=== PATIENT | male | born 1945 | race Caucasian/White ===

== ENCOUNTER 2023-04-19 16:30 | Emergency (ER) | payer MEDICARE, SELFPAY ==
[2023-04-19] VITALS (14 sets, daily range): BP systolic 102–134; BP diastolic 42–97; PULSE 60–69; RESP 14–30; TEMP 36.4; O2SAT 91–99; BMI 30.9
--- NOTE | 2023-04-19 | CT_ITS ---
The [address] [address] Patient Name: ALY PABLO MRN: [id number] date: 1945 Sex: M Assigned Patient Location: ER Current Patient Location: ED.MAIN Accession/Order Number: [id number] Exam Date: 04/19/2023 17:52 Report Date: 04/19/2023 19:29 At the request of: LATIA APARICIO Procedure: CT chest wo con CT chest wo con, 04/19/2023 5:52 PM EDT INDICATION: pain and SOB COMPARISON: None. TECHNIQUE: Thin-section axial CT images of the chest were acquired without contrast. Supplemental 2D reformatted images were generated and reviewed as needed. Dose reduction techniques were achieved by using automated exposure control and/or adjustment of mA and/or kV according to patient size and/or use of iterative reconstruction technique. FINDINGS: No focal consolidation or pleural effusion. Mild bibasilar subpleural fibrotic changes. No pneumothorax. Shotty mediastinal nodes, likely reactive. Heart size within normal limits. Pacemaker leads are noted. No pericardial effusion. Normal caliber aorta. Opaque material in the dependent gallbladder consistent with multiple tiny stones. Multilevel thoracic spondylosis IMPRESSION: Cholelithiasis. No acute intrathoracic abnormality is identified. Electronically authenticated by: Lori WELCH Date: 04/19/2023 19:29
--- NOTE | 2023-04-19 | CT_ITS ---
The [address] [address] Patient Name: ALY PABLO MRN: [id number] date: 1945 Sex: M Assigned Patient Location: ER Current Patient Location: ER Accession/Order Number: [id number] Exam Date: 04/19/2023 17:52 Report Date: 04/19/2023 19:43 At the request of: LATIA APARICIO Procedure: CT abdomen pelvis wo con EXAM: CT abdomen pelvis wo con HISTORY: pain and SOB COMPARISON: None. TECHNIQUE: Axial CT imaging was performed through the abdomen and pelvis with intravenous contrast. Multiplanar reformats were performed. Dose reduction techniques were achieved by using automated exposure control and/or adjustment of mA and/or kV according to patient size and/or use of iterative reconstruction technique. FINDINGS: Lung bases: Lung bases are clear. No pleural effusion. GI upper: Unremarkable. Liver: Normal size and contour. Gallbladder: Opaque material is seen in the dependent gallbladder consistent with multiple tiny calculi. Biliary system: No intra or extrahepatic biliary ductal dilatation. Pancreas: Unremarkable. Spleen: Normal size. Adrenal glands: Normal adrenal glands. Kidneys/ureters: The right kidney is absent. The left kidney is normal in contour and size. A circumscribed 9 mm exophytic lesion is seen at the lateral inferior margin of the left kidney with density numbers in the range of 60 Hounsfield units, likely hyperdense cyst. No nephrolithiasis. The left ureter is normal in caliber and course to the bladder. Vessels: No aneurysmal dilatation of the aorta. Atherosclerotic disease is noted. Retroperitoneum: No lymphadenopathy. Small bowel: No wall thickening or dilatation. Colon: Descending and sigmoid colon diverticuli are noted. There is wall thickening and adjacent mild fat stranding at about juncture of the descending and sigmoid colon. No extraluminal air. Appendix: Appendix is identified with normal appearance. Peritoneal cavity: No free fluid or pneumoperitoneum. Lower : The prostate is enlarged, measuring approximately 4.5 cm AP by 6.3 cm transverse by 6.0 cm craniocaudal. Punctate calcifications are seen within. Bones:Facet arthropathy at lower lumbar levels. No acute bony abnormality. Soft tissues: No acute finding. Additional findings: None. IMPRESSION: Left colonic diverticulosis with evidence for diverticulitis at about juncture of the descending and sigmoid colon. Cholelithiasis. Prior right nephrectomy. Prostatomegaly. Electronically authenticated by: Lori WELCH Date: 04/19/2023 19:43
--- NOTE | 2023-04-19 16:58 | ED.GENADUL1 ---
HPI - General Adult General Chief complaint: Shortness of Breath/Dyspnea Stated complaint: SOB/EPIGASTRIC PAIN Time Seen by Provider: 04/19/23 16:53 Source: patient Mode of arrival: Wheelchair Limitations: no limitations History of Present Illness HPI narrative: 77 year old old male presents to the emergency department for abdominal pain. He points across his upper abdomen and it's been there since early this morning. No trauma or fever. He hasn't eaten today. He is not complaining of chest pain but he feels a little bit short of breath. No injury and no back pain. The pain does not go into his legs. No dysuria or hematuria. The pain is moderate to severe and continuous. Related Data Allergies Allergy/AdvReac Type Severity Reaction Status Date / Time No Known Drug Allergies Allergy Verified 04/19/23 16:44 Review of Systems ROS Narrative A ten point review of systems is negative except as noted above. Exam Narrative Exam Narrative: Nurses note and vital signs reviewed and patient is not hypoxic. General: The patient appears uncomfortable. Skin: Warm, dry, no pallor noted. There is no rash noted. Head: Normocephalic, atraumatic Eye: Normal conjunctiva, no drainage Ears, Nose, Mouth, and Throat: oral mucosa is moist. Nares patent. Cardiovascular: Regular Rate and Rhythm Respiratory: Patient is in no distress, no accessory muscle use, lungs are clear to auscultation, no wheezing, rales or rhonchi Back: non-tender GI: tender across his upper abdomen, bowel sounds present. No distention. Musculoskeletal: The patient has no evidence of calf tenderness, no pitting edema, symmetrical pulses noted bilaterally Neurological: A&O, normal speech Psychiatric: Cooperative Constitutional Vital Signs - 24 hr 04/19/23 16:41 Temperature 97.6 F Pulse Rate [Monitor] 60 Respiratory Rate 28 H Blood Pressure [Right Arm] 102/97 H Pulse Oximetry 99 Course Vital Signs Vital signs: Vital Signs Temperature 97.6 F 04/19/23 16:41 Pulse Rate 60 04/19/23 16:41 Respiratory Rate 28 H 04/19/23 16:41 Blood Pressure 102/97 H 04/19/23 16:41 Pulse Oximetry 99 04/19/23 16:41 Temperature 97.6 F 04/19/23 16:41 Pulse Rate 60 06/23/23 16:41 Respiratory Rate 28 H 04/19/23 16:41 Blood Pressure 102/97 H 04/19/23 16:41 Pulse Oximetry 99 04/19/23 16:41 Medical Decision Making MDM Narrative Medical decision making narrative: blood work is nonspecific. CAT scan the abdomen is pending and the patient is signed out to Dr. Teague. Differential Diagnosis Differential Diagnosis: abdominal aortic aneurysm, pancreatitis, colitis, diverticulitis, small bow Lab Data Lab results reviewed: Yes I reviewed the patient's lab results Discharge Plan Discharge Chief Complaint: Shortness of Breath/Dyspnea Clinical Impression: Abdominal pain Referrals: JERRICA QUINTERO [Primary Care Provider] - 1 week
[2023-04-19 17:15] LABS: Basophils Percent Auto 0.4 % (0.2-2.0); Eosinophils Absolute Auto 0.1 10^3/uL (0.0-0.7); Eosinophils Percent Auto 1.6 % (0.9-7.0); Hematocrit 37.4 % (42.0-54.0); Hemoglobin 12.9 g/dL (14.0-18.0); Immature Granulocytes Abs Auto 0.03 10^3/uL (0.00-0.03); Immature Granulocytes Pct Auto 0.4 % (0.0-0.5); Lymphocytes Absolute Auto 0.8 10^3/uL (1.2-3.8); Lymphocytes Percent Auto 9.4 % (20.5-60.0); Mean Corpuscular HGB Conc 34.5 g/dL (29.9-35.2); Mean Corpuscular Hemoglobin 30.8 pg (25.9-34.0); Mean Corpuscular Volume 89.3 fL (80.0-94.0); Mean Platelet Volume 9.7 fL (9.5-13.5); Monocytes Absolute Auto 0.5 10^3/uL (0.3-0.8); Monocytes Percent Auto 5.8 % (1.7-12.0); Neutrophils Percent Auto 82.4 % (43.0-75.0); Platelet Count 160 10^3/uL (150-450); Red Blood Count 4.19 10^6/uL (4.70-6.10); Red Cell Distribution Width 14.6 % (11.0-15.0); White Blood Count 8.5 10^3/uL (4.0-11.0)
[2023-04-19 17:28] LABS: Amylase 91 U/L (25-115)
[2023-04-19 17:34] LABS: Alanine Aminotransferase 54 U/L (16-63); Albumin Globulin Ratio 1.3; Albumin Level 3.8 g/dL (3.4-5.0); Alkaline Phosphatase 143 U/L (46-116); Anion Gap 14.9; Aspartate Amino Transferase 63 U/L (15-37); BUN Creatinine Ratio 16.5; Bilirubin Total 1.5 mg/dL (0.2-1.0); Calcium 9.2 mg/dL (8.5-10.1); Carbon Dioxide 19.7 mmol/L (21.0-32.0); Chloride 106 mmol/L (98-107); Estimated GFR (African America 29 (>=60); Estimated GFR (Non-African Ame 24 (>=60); Glucose 153 mg/dL (74-106); Potassium 4.6 mmol/L (3.5-5.1); Sodium 136 mmol/L (136-145); Total Protein 6.8 g/dL (6.4-8.2)
[2023-04-19 17:35] LABS: Troponin I High Sensitivity 13.1 pg/mL (4.0-76.1)
--- NOTE | 2023-04-19 18:50 | ECG_ITS ---
The 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
[2023-04-19 19:31] LABS: Lactate/Lactic Acid 0.8 mmol/L (0.4-2.0)
--- NOTE | 2023-04-19 20:04 | ED_ITS ---
HPI - General Adult General Chief complaint: Shortness of Breath/Dyspnea Stated complaint: SOB/EPIGASTRIC PAIN Time Seen by Provider: 04/19/23 16:53 Source: patient Mode of arrival: Wheelchair Limitations: no limitations Related Data Allergies Allergy/AdvReac Type Severity Reaction Status Date / Time No Known Drug Allergies Allergy Verified 04/19/23 16:44 Exam Constitutional Vital Signs - 24 hr 04/19/23 16:41 04/19/23 16:52 04/19/23 16:54 Temperature 97.6 F Pulse Rate 62 60 Pulse Rate [Monitor] 60 Respiratory Rate 28 H 20 21 Blood Pressure 129/70 H Blood Pressure [Right Arm] 102/97 H Pulse Oximetry 99 Oxygen Delivery Method 04/19/23 16:54 04/19/23 16:54 04/19/23 17:00 Temperature Pulse Rate 61 60 60 Pulse Rate [Monitor] Respiratory Rate 26 H 30 H 18 Blood Pressure 129/70 H 119/42 L Blood Pressure [Right Arm] Pulse Oximetry Oxygen Delivery Method 04/19/23 17:15 04/19/23 17:30 04/19/23 17:45 Temperature Pulse Rate 64 60 69 Pulse Rate [Monitor] Respiratory Rate 19 19 22 Blood Pressure 127/65 H 130/67 H 120/68 H Blood Pressure [Right Arm] Pulse Oximetry Oxygen Delivery Method 04/19/23 18:04 04/19/23 18:04 04/19/23 18:15 Temperature Pulse Rate 61 64 61 Pulse Rate [Monitor] Respiratory Rate 19 22 18 Blood Pressure 134/66 H 115/61 Blood Pressure [Right Arm] Pulse Oximetry 98 91 L 97 Oxygen Delivery Method 04/19/23 18:30 04/19/23 19:03 04/19/23 19:09 Temperature Pulse Rate 64 Pulse Rate [Monitor] 66 Respiratory Rate 21 14 Blood Pressure 120/67 H Blood Pressure [Right Arm] 121/62 H Pulse Oximetry 98 97 97 Oxygen Delivery Method Room Air Room Air 04/19/23 21:37 Temperature 97.6 F Pulse Rate Pulse Rate [Monitor] 69 Respiratory Rate 16 Blood Pressure Blood Pressure [Right Arm] 124/72 H Pulse Oximetry 97 Oxygen Delivery Method Room Air Course Vital Signs Vital signs: Vital Signs Temperature 97.6 F 04/19/23 16:41 Pulse Rate 60 04/19/23 16:41 Respiratory Rate 28 H 06/23/23 16:41 Blood Pressure 102/97 H 04/19/23 16:41 Pulse Oximetry 99 04/19/23 16:41 Temperature 97.6 F 04/19/23 21:37 Pulse Rate 69 04/19/23 21:37 Respiratory Rate 16 04/19/23 21:37 Blood Pressure 124/72 H 04/19/23 21:37 Pulse Oximetry 97 04/19/23 21:37 Oxygen Delivery Method Room Air 04/19/23 21:37 Medical Decision Making Lab Data Labs: Lab Results 04/19/23 04/19/23 Range/Units 16:58 19:10 WBC 8.5 (4.0-11.0) 10^3/uL RBC 4.19 L (4.70-6.10) 10^6/uL Hgb 12.9 L (14.0-18.0) g/dL Hct 37.4 L (42.0-54.0) % MCV 89.3 (80.0-94.0) fL MCH 30.8 (25.9-34.0) pg MCHC 34.5 (29.9-35.2) g/dL RDW 14.6 (11.0-15.0) % Plt Count 160 (150-450) 10^3/uL MPV 9.7 (9.5-13.5) fL Neut % (Auto) 82.4 H (43.0-75.0) % Lymph % (Auto) 9.4 L (20.5-60.0) % [place] % (Auto) 5.8 (1.7-12.0) % Eos % (Auto) 1.6 (0.9-7.0) % Baso % (Auto) 0.4 (0.2-2.0) % Neut # (Auto) 7.0 H (1.4-6.5) 10^3/uL Lymph # (Auto) 0.8 L (1.2-3.8) 10^3/uL [place] # (Auto) 0.5 (0.3-0.8) 10^3/uL Eos # (Auto) 0.1 (0.0-0.7) 10^3/uL Baso # (Auto) 0.0 (0.0-0.1) 10^3/uL Abs Immat Gran (auto) 0.03 (0.00-0.03) 10^3/uL Imm/Tot Granulo (auto) 0.4 (0.0-0.5) % Sodium 136 (136-145) mmol/L Potassium 4.6 (3.5-5.1) mmol/L Chloride 106 (98-107) mmol/L Carbon Dioxide 19.7 L (21.0-32.0) mmol/L Anion Gap 14.9 BUN 43.0 H (7.0-18.0) mg/dL Creatinine 2.61 H (0.70-1.30) mg/dL Est GFR ( Amer) 29 L (>=60) Est GFR (Non-Af Amer) 24 L (>=60) BUN/Creatinine Ratio 16.5 Glucose 153 H (74-106) mg/dL Lactate 0.8 (0.4-2.0) mmol/L Calcium 9.2 (8.5-10.1) mg/dL Total Bilirubin 1.5 H (0.2-1.0) mg/dL AST 63 H (15-37) U/L ALT 54 (16-63) U/L Alkaline Phosphatase 143 H (46-116) U/L Troponin I High Sens 13.1 (4.0-76.1) pg/mL Total Protein 6.8 (6.4-8.2) g/dL Albumin 3.8 (3.4-5.0) g/dL Globulin 3.0 g/dL Albumin/Globulin Ratio 1.3 Amylase 91 (25-115) U/L Lipase 165.0 (73.0-393.0) U/L Discharge Plan Discharge Chief Complaint: Shortness of Breath/Dyspnea Clinical Impression: Abdominal pain, Acute diverticulitis, Chronic renal disease, Gallstones Patient Disposition: Home, Self-Care Time of Disposition Decision: 20:31 Condition: Good Mode of Transportation: Private Vehicle Instructions: Diverticulitis (ED), Gallstones (ED), Chronic Kidney Disease (ED) Additional Instructions: Eat a bland diet. Use pain medications as needed. Use Colace to prevent constipation from the pain medications. Use the antibiotics as prescribed. Return to the emergency department for worsening pain, fever, inability to tolerate her medications or any concerns. Follow up closely with your health care providers at the [place]. Stand Alone Forms: Portal Instructions Referrals: JERRICA QUINTERO [Primary Care Provider] - 1 week Discharge Date/Time: 04/19/23 22:20
[2023-04-19] MEDS: AMPICILLIN SODIUM/SULBACTAM NA 1.5 GM in 0.9 % SODIUM CHLORIDE 50 ML IV (20:22)
[2023-04-19] MEDS: METRONIDAZOLE/SODIUM CHLORIDE 500 MG/100 ML PREMIX 100 MG IV (21:09)
== END 2023-04-19 22:20 | disposition home or self-care (01) ==
PROVIDERS: Emergency Medicine; Emergency Provider Emergency Medicine; PCP Nurse Practitioner Family
DX: R10.9 Unspecified abdominal pain (principal); N18.9 Chronic kidney disease, unspecified; K57.32 Diverticulitis of large intestine without perforation or abscess without bleeding; K80.20 Calculus of gallbladder without cholecystitis without obstruction
CPT/HCPCS: 36415; 71250; 74176; 80053; 81003; 82150; 83605; 83690; 84484; 85025; 93005; 96365; 96375; 99285

== ENCOUNTER 2023-06-25 13:14 | Outpatient (OUT) | payer MEDICARE, SELFPAY ==
[2023-06-25 14:03] LABS: Basophils Absolute Auto 0.1 10^3/uL (0.0-0.1); Basophils Percent Auto 1.3 % (0.2-2.0); Eosinophils Absolute Auto 0.2 10^3/uL (0.0-0.7); Eosinophils Percent Auto 4.2 % (0.9-7.0); Hemoglobin 13.3 g/dL (14.0-18.0); Immature Granulocytes Abs Auto 0.01 10^3/uL (0.00-0.03); Immature Granulocytes Pct Auto 0.2 % (0.0-0.5); Lymphocytes Absolute Auto 0.8 10^3/uL (1.2-3.8); Lymphocytes Percent Auto 15.1 % (20.5-60.0); Mean Corpuscular HGB Conc 33.3 g/dL (29.9-35.2); Mean Corpuscular Hemoglobin 31.1 pg (25.9-34.0); Mean Corpuscular Volume 93.7 fL (80.0-94.0); Mean Platelet Volume 9.6 fL (9.5-13.5); Monocytes Absolute Auto 0.5 10^3/uL (0.3-0.8); Monocytes Percent Auto 8.7 % (1.7-12.0); Neutrophils Absolute Auto 3.7 10^3/uL (1.4-6.5); Neutrophils Percent Auto 70.5 % (43.0-75.0); Platelet Count 146 10^3/uL (150-450); Red Blood Count 4.27 10^6/uL (4.70-6.10); Red Cell Distribution Width 13.8 % (11.0-15.0); White Blood Count 5.3 10^3/uL (4.0-11.0)
[2023-06-25 14:22] LABS: Estimated Average Glucose 117 mg/dL; Glycohemoglobin A1C 5.7 % (4.5-6.2)
[2023-06-25 14:42] LABS: Alanine Aminotransferase 33 U/L (16-63); Albumin Globulin Ratio 1.4; Albumin Level 4.1 g/dL (3.4-5.0); Alkaline Phosphatase 123 U/L (46-116); Anion Gap 18.9; Aspartate Amino Transferase 32 U/L (15-37); BUN Creatinine Ratio 12.9; Bilirubin Total 0.7 mg/dL (0.2-1.0); Calcium 9.4 mg/dL (8.5-10.1); Carbon Dioxide 21.9 mmol/L (21.0-32.0); Chloride 104 mmol/L (98-107); Chol HDL Ratio 2.4; Cholesterol 104 mg/dL (<=200); Estimated GFR (African America 37 (>=60); Estimated GFR (Non-African Ame 31 (>=60); Free T3 2.64 pg/mL (2.18-3.98); Glucose 113 mg/dL (74-106); HDL Cholesterol 44 mg/dL (40-60); LDL Cholesterol Calculated 40.2 mg/dL; Potassium 4.8 mmol/L (3.5-5.1); Sodium 140 mmol/L (136-145); Thyroid Stimulating Hormone 1.819 uIU/mL (0.358-3.740); Total Protein 7.1 g/dL (6.4-8.2); Triglycerides 99 mg/dL (<=150); VLDL CHOLESTEROL 19.8 mg/dL
[2023-06-26 12:12] LABS: Insulin 12.3 uIU/mL (2.6-24.9)
== END 2023-06-25 13:15 | disposition home or self-care (01) ==
LOC: LAB 13:16
PROVIDERS: PCP Nurse Practitioner Family; Visit Provider Nurse Practitioner Family
DX: R53.82 Chronic fatigue, unspecified (principal); E78.00 Pure hypercholesterolemia, unspecified; E55.9 Vitamin D deficiency, unspecified; R73.9 Hyperglycemia, unspecified
CPT/HCPCS: 36415; 80053; 80061; 82306; 83036; 83525; 84436; 84443; 84481; 84550; 85025

== ENCOUNTER 2024-01-27 12:38 | Outpatient (OUT) | payer MEDICARE, SELFPAY ==
--- NOTE | 2024-01-27 13:00 | ECG_ITS ---
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
== END 2024-01-27 12:39 | disposition home or self-care (01) ==
LOC: CARD 12:39
PROVIDERS: PCP Nurse Practitioner Family; Visit Provider Nurse Practitioner Family
DX: I48.91 Unspecified atrial fibrillation (principal)
CPT/HCPCS: 93005

== ENCOUNTER 2024-06-13 22:27 | Inpatient (IN) | payer OTHER, SELFPAY ==
[2024-06-13 22:52] VITALS: BP 138/72; PULSE 67; TEMP 36.6; O2SAT 97; BMI 28.0
--- NOTE | 2024-06-13 23:11 | CT_ITS ---
The [address] [address] Patient Name: ALY PABLO MRN: [id number] date: 1945 Sex: M Assigned Patient Location: ER Current Patient Location: ER Accession/Order Number: [id number] Exam Date: 06/13/2024 23:49 Report Date: 06/14/2024 04:33 At the request of: LATIA APARICIO Procedure: CT abdomen pelvis wo con EXAM: CT abdomen pelvis wo con HISTORY: Right sided pain, history of right nephrectomy COMPARISON: CT abdomen and pelvis examination dated 04/19/2023. TECHNIQUE: Noncontrast axial CT images through the abdomen and pelvis were obtained with coronal and sagittal reformats. Dose reduction techniques were achieved by using automated exposure control and/or adjustment of mA and/or kV according to patient size and/or use of iterative reconstruction technique. FINDINGS: There is bibasilar atelectasis and/or scarring. Cardiac pacemaker leads are partially imaged. There is mild cardiomegaly. There is coronary artery disease. There is a small hiatal hernia. Abdomen: Please note that the sensitivity for detection of focal lesions or vascular disease is markedly reduced without intravenous contrast. The liver and spleen are unremarkable. There is no intra or extrahepatic biliary duct dilatation. There is cholelithiasis with mild pericholecystic inflammation. The patient is status post a right nephrectomy. There are a few left renal cysts. There is a hemorrhagic or proteinaceous left renal cyst measuring up to 1.0 cm (series 3, image 65). There are a few additional small suspected hemorrhagic or proteinaceous left renal cysts. The pancreas, adrenal glands, and the appendix are unremarkable. There is no mesenteric or retroperitoneal lymphadenopathy. There is colonic diverticulosis with mild inflammatory changes about the proximal sigmoid colon. There are a few small fat-containing peribuccal hernias. Pelvis: The bladder demonstrates wall thickening. The rectum is unremarkable. There is no iliac or inguinal lymphadenopathy. There is marked prostatomegaly. There is moderate to advanced atherosclerotic disease. Bone windows show no aggressive osseous lesions. 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 CT/CT abdomen pelvis wo con IMPRESSION: 1. Cholelithiasis with mild pericholecystic inflammation. Consider further evaluation with a right upper quadrant examination as these findings could represent acute cholecystitis. 2. Mild cardiomegaly with coronary artery disease. 3. Status post right nephrectomy. 4. Left renal cysts including a few hemorrhagic or proteinaceous cysts. 5. Normal appendix. 6. Colonic diverticulosis with mild inflammatory changes about the proximal sigmoid colon, concerning for diverticulitis or a focal colitis. 7. Prostamegaly. 8. Urinary bladder wall thickening which could be secondary to chronic outlet obstruction from the prostatomegaly; however, please correlate with urinalysis for infection. 9. 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 Electronically authenticated by: Kane DU Date: 06/14/2024 04:33
--- NOTE | 2024-06-13 23:11 | ECG_ITS ---
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
--- NOTE | 2024-06-13 23:11 | XR_ITS ---
The [address] [address] Patient Name: ALY PABLO MRN: [id number] date: 1945 Sex: M Assigned Patient Location: ER Current Patient Location: ER Accession/Order Number: [id number] Exam Date: 06/13/2024 23:42 Report Date: 06/14/2024 04:03 At the request of: LATIA APARICIO Procedure: XR chest 1V EXAM: XR chest 1V HISTORY: Abdominal pain COMPARISON: None. TECHNIQUE: One view of the chest was obtained. FINDINGS: A left chest cardiac pacemaker device is in place. The cardiac silhouette is mildly enlarged. There is no significant pneumothorax or left pleural effusion. There are bibasilar opacities. There is a possible small right pleural effusion. No acute osseous abnormality is seen. XR/XR chest 1V IMPRESSION: 1. Mildly enlarged cardiac silhouette with a possible small right pleural effusion and bibasilar opacities that could represent atelectasis, aspiration changes, and/or pneumonia. Electronically authenticated by: Kane DU Date: 06/14/2024 04:03
--- NOTE | 2024-06-13 23:13 | ED.ABDPAIN1 ---
HPI - Abdominal Pain General Chief Complaint: Abdominal Pain Stated Complaint: ABDOMINAL PAIN, FLANK PAIN Time Seen by Provider: 06/13/24 23:08 Source: patient Mode of arrival: walk-in Limitations: no limitations History of Present Illness HPI narrative: 78-year-old male presents to the emergency department for right-sided abdominal pain. He has had it since 10:00 this morning, 13 hours ago. No injury fever vomiting constipation or diarrhea. He states he has never had pain like this before. He has a history of right nephrectomy. Related Data Allergies Allergy/AdvReac Type Severity Reaction Status Date / Time No Known Drug Allergies Allergy Verified 06/13/24 22:56 Review of Systems ROS Narrative A ten point review of systems is negative except as noted above. Exam Narrative Exam Narrative: Nurses note and vital signs reviewed and patient is not hypoxic. General: The patient appears uncomfortable and is frequently moving around on the bed. Skin: Warm, dry, no pallor noted. There is no rash noted. Head: Normocephalic, atraumatic Eye: Normal conjunctiva, no drainage Ears, Nose, Mouth, and Throat: oral mucosa is moist. Nares patent. Cardiovascular: Regular Rate and Rhythm Respiratory: Patient is in no distress, no accessory muscle use, lungs are clear to auscultation, no wheezing, rales or rhonchi Back: non-tender, no CVA tenderness bilaterally to percussion. GI: Nondistended. No apparent tenderness on palpation. No masses noted Musculoskeletal: The patient has no evidence of calf tenderness, no pitting edema, symmetrical pulses noted bilaterally Neurological: A&O, normal speech Psychiatric: Cooperative Constitutional Vital Signs, click to edit/add: Last Vital Signs Temp 98 F 06/13/24 22:52 Pulse 92 H 06/14/24 04:53 Resp 16 06/14/24 04:53 BP 104/66 06/14/24 04:53 Pulse Ox 91 L 06/14/24 04:53 O2 Del Method Room Air 06/14/24 04:53 Course Vital Signs Vital signs: Vital Signs Temperature 98 F 06/13/24 22:52 Pulse Rate 67 06/13/24 22:52 Respiratory Rate 20 06/13/24 22:52 Blood Pressure 138/72 06/13/24 22:52 Pulse Oximetry 97 06/13/24 22:52 Oxygen Delivery Method Room Air 06/13/24 22:52 Temperature 98 F 06/13/24 22:52 Pulse Rate 92 H 06/14/24 04:53 Respiratory Rate 16 06/14/24 04:53 Blood Pressure 104/66 06/14/24 04:53 Pulse Oximetry 91 L 06/14/24 04:53 Oxygen Delivery Method Room Air 06/14/24 04:53 MDM - Abdominal Pain MDM Narrative Medical decision making narrative: CT scan is consistent with acute cholecystitis. LFTs are mildly elevated but his white blood cell count is normal. He was given IV Zosyn and I spoke to Dr. Beach and at his request I have ordered a right upper quadrant ultrasound and the patient will be admitted to the hospitalist. Treatment diagnosis and disposition were discussed with the patient. Differential Diagnosis Differential diagnosis: Likely abdominal pain, acute appendicitis, calculus of kidney, constipation, diverticulitis, gastroenteritis, pancreatitis and small bowel obstruction Lab Data Attestation: I reviewed the patient's lab results. Labs: Lab Results 06/13/24 06/14/24 Range/Units 23:00 04:40 WBC 9.2 (4.0-11.0) 10^3/uL RBC 4.00 L (4.70-6.10) 10^6/uL Hgb 12.4 L (14.0-18.0) g/dL Hct 37.1 L (42.0-54.0) % MCV 92.8 (80.0-94.0) fL MCH 31.0 (25.9-34.0) pg MCHC 33.4 (29.9-35.2) g/dL RDW 13.4 (11.0-15.0) % Plt Count 127 L (150-450) 10^3/uL MPV 10.2 (9.5-13.5) fL Neut % (Auto) 87.5 H (43.0-75.0) % Lymph % (Auto) 7.0 L (20.5-60.0) % [place] % (Auto) 4.8 (1.7-12.0) % Eos % (Auto) 0.2 L (0.9-7.0) % Baso % (Auto) 0.3 (0.2-2.0) % Neut # (Auto) 8.1 H (1.4-6.5) 10^3/uL Lymph # (Auto) 0.7 L (1.2-3.8) 10^3/uL [place] # (Auto) 0.4 (0.3-0.8) 10^3/uL Eos # (Auto) 0.0 (0.0-0.7) 10^3/uL Baso # (Auto) 0.0 (0.0-0.1) 10^3/uL Abs Immat Gran (auto) 0.02 (0.00-0.03) 10^3/uL Imm/Tot Granulo (auto) 0.2 (0.0-0.5) % Sodium 133 L (136-145) mmol/L Potassium 5.6 H (3.5-5.1) mmol/L Chloride 104 (98-107) mmol/L Carbon Dioxide 19.5 L (21.0-32.0) mmol/L Anion Gap 15.1 BUN 52.0 H (7.0-18.0) mg/dL Creatinine 2.40 H (0.70-1.30) mg/dL Est GFR ( Amer) 32 L (>=60) Est GFR (Non-Af Amer) 26 L (>=60) BUN/Creatinine Ratio 21.7 Glucose 189 H (74-106) mg/dL Calcium 9.1 (8.5-10.1) mg/dL Total Bilirubin 1.3 H (0.2-1.0) mg/dL Direct Bilirubin 0.8 H* (0.0-0.2) mg/dL AST 586 H* (15-37) U/L ALT 399 H (16-63) U/L Alkaline Phosphatase 196 H (46-116) U/L Total Protein 6.2 L (6.4-8.2) g/dL Albumin 3.7 (3.4-5.0) g/dL Globulin 2.5 g/dL Albumin/Globulin Ratio 1.5 Amylase 79 (25-115) U/L Lipase 69.0 (16.0-77.0) U/L Urine Color Yellow (YELLOW) Urine Clarity Clear (CLEAR) Urine pH 5.5 (5.0-9.0) Ur Specific [place] 1.025 (1.005-1.025) Urine Protein Trace (NEG/TRACE) mg/dL Urine Glucose (UA) Negative (NEGATIVE) mg/dL Urine Ketones Negative (NEGATIVE) mg/dL Urine Occult Blood Negative (NEGATIVE) Urine Nitrite Negative (NEGATIVE) Urine Bilirubin Negative (NEGATIVE) Urine Urobilinogen 0.2 (0.2-1.0) EU/dL Ur Leukocyte Esterase Small A (NEGATIVE) Imaging Data CT scan - abdomen: Radiologist's impression: ITS Impressions Abdomen/Pelvis CT 06/13/24 23:11 IMPRESSION: 1. Cholelithiasis with mild pericholecystic inflammation. Consider further evaluation with a right upper quadrant examination as these findings could represent acute cholecystitis. 2. Mild cardiomegaly with coronary artery disease. 3. Status post right nephrectomy. 4. Left renal cysts including a few hemorrhagic or proteinaceous cysts. 5. Normal appendix. 6. Colonic diverticulosis with mild inflammatory changes about the proximal sigmoid colon, concerning for diverticulitis or a focal colitis. 7. Prostamegaly. 8. Urinary bladder wall thickening which could be secondary to chronic outlet obstruction from the prostatomegaly; however, please correlate with urinalysis for infection. 9. 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 Electronically authenticated by: Kane DU Date: 06/14/2024 04:33 Chest X-Ray 06/13/24 23:11 IMPRESSION: 1. Mildly enlarged cardiac silhouette with a possible small right pleural effusion and bibasilar opacities that could represent atelectasis, aspiration changes, and/or pneumonia. Electronically authenticated by: Kane DU Date: 06/14/2024 04:03 Discharge Plan Discharge Chief Complaint: Abdominal Pain Clinical Impression: Acute cholecystitis Patient Disposition: Admitted As Inpatient Time of Disposition Decision: 05:00 Condition: Fair
[2024-06-13 23:19] LABS: Basophils Percent Auto 0.3 % (0.2-2.0); Eosinophils Percent Auto 0.2 % (0.9-7.0); Hematocrit 37.1 % (42.0-54.0); Hemoglobin 12.4 g/dL (14.0-18.0); Immature Granulocytes Abs Auto 0.02 10^3/uL (0.00-0.03); Immature Granulocytes Pct Auto 0.2 % (0.0-0.5); Lymphocytes Absolute Auto 0.7 10^3/uL (1.2-3.8); Mean Corpuscular HGB Conc 33.4 g/dL (29.9-35.2); Mean Corpuscular Volume 92.8 fL (80.0-94.0); Mean Platelet Volume 10.2 fL (9.5-13.5); Monocytes Absolute Auto 0.4 10^3/uL (0.3-0.8); Monocytes Percent Auto 4.8 % (1.7-12.0); Neutrophils Absolute Auto 8.1 10^3/uL (1.4-6.5); Neutrophils Percent Auto 87.5 % (43.0-75.0); Platelet Count 127 10^3/uL (150-450); Red Cell Distribution Width 13.4 % (11.0-15.0); White Blood Count 9.2 10^3/uL (4.0-11.0)
[2024-06-13] MEDS: MORPHINE SULFATE 4 MG/ML VIAL IV (23:19)
[2024-06-13] MEDS: ONDANSETRON PF 4 MG/2 ML VIAL IV (23:20)
[2024-06-13 23:38] LABS: Alanine Aminotransferase 399 U/L (16-63); Albumin Globulin Ratio 1.5; Albumin Level 3.7 g/dL (3.4-5.0); Alkaline Phosphatase 196 U/L (46-116); Amylase 79 U/L (25-115); Anion Gap 15.1; BUN Creatinine Ratio 21.7; Bilirubin Total 1.3 mg/dL (0.2-1.0); Calcium 9.1 mg/dL (8.5-10.1); Carbon Dioxide 19.5 mmol/L (21.0-32.0); Chloride 104 mmol/L (98-107); Estimated GFR (African America 32 (>=60); Estimated GFR (Non-African Ame 26 (>=60); Globulin 2.5 g/dL; Glucose 189 mg/dL (74-106); Potassium 5.6 mmol/L (3.5-5.1); Sodium 133 mmol/L (136-145); Total Protein 6.2 g/dL (6.4-8.2)
[2024-06-13 23:40] LABS: Aspartate Amino Transferase 586 U/L (15-37); Bilirubin Direct 0.8 mg/dL (0.0-0.2)
[2024-06-13 23:41] VITALS: BP 116/64; PULSE 61; O2SAT 96
[2024-06-14] VITALS (36 sets, daily range): BP systolic 101–154; BP diastolic 56–77; PULSE 64–108; TEMP 36.4–36.9; O2SAT 89–98; BMI 28.0
[2024-06-14 04:51] LABS: Bilirubin Urine NEGATIVE (NEGATIVE); Blood Urine NEGATIVE (NEGATIVE); Clarity Urine CLEAR (CLEAR); Color Urine YELLOW (YELLOW); Glucose Urine UA NEGATIVE (NEGATIVE); Ketones Urine NEGATIVE (NEGATIVE); Leukocyte Esterase Urine SMALL (NEGATIVE); Nitrite Urine NEGATIVE (NEGATIVE); Protein Urine TRACE mg/dL (NEG/TRACE); Specific Gravity Urine 1.025 (1.005-1.025); Urobilinogen Urine 0.2 EU/dL (0.2-1.0); pH Urine 5.5 (5.0-9.0)
[2024-06-14 05:00] LABS: Amorphous Sediment Urine FEW; Bacteria Urine NONE SEEN #/HPF (NONE SEEN); Cast Seen? SEEN #/LPF (NONE SEEN); Crystals Seen? None Seen #/HPF (None Seen); Hyaline Casts Urine FEW; Mucus Urine TRACE (NONE SEEN); RBC Urine NONE SEEN #/HPF (0-2); Squamous Epithelial Cell Urine NONE SEEN #/LPF (NONE/RARE); Transitional Epi Cells Urine FEW #/LPF (NONE SEEN); Urine Culture Indicated YES
[2024-06-14] MEDS: MORPHINE SULFATE 4 MG/ML VIAL IV (05:23)
[2024-06-14] MEDS: PIPERACILLIN SODIUM/TAZOBACTAM 3.375 GM in 0.9 % SODIUM CHLORIDE 50 ML IV ×3 (05:23→20:20)
[2024-06-14] MEDS: 0.9 % SODIUM CHLORIDE 1,000 ML 100 ML IV ×2 (06:55→12:43)
--- NOTE | 2024-06-14 07:00 | US_ITS ---
The [address] [address] Patient Name: ALY PABLO MRN: [id number] date: 1945 Sex: M Assigned Patient Location: MS Current Patient Location: MS Accession/Order Number: [id number] Exam Date: 06/14/2024 08:20 Report Date: 06/14/2024 10:40 At the request of: LATIA APARICIO Procedure: US right upper quadrant PROCEDURE: US right upper quadrant DATE: 06/14/2024 7:20 AM CDT COMPARISONS: None. INDICATION FOR EXAMINATION: 78 years Male Right upper quadrant pain, abnormal CAT scan TECHNIQUE: Grayscale and color Doppler technique were utilized to evaluate the right upper quadrant. FINDINGS: LIVER: There is no evidence of focal hepatic abnormalities. Hepatic echogenicity is within normal limits. NATANAEL HEPATIS: The common bile duct measures 5 mm in diameter. There is no evidence of intrahepatic biliary dilatation. The portal vein is patent with appropriate hepatopedal flow direction. GALLBLADDER: There are echogenic structures in the dependent portion of the gallbladder consistent with cholelithiasis. The gallbladder wall is diffusely thickened consistent with cholecystitis. No significant pain over the right upper quadrant during the exam PANCREAS: Pancreas is poorly visualized. The visualized portions of the pancreas show no abnormalities. RIGHT KIDNEY: Previous right nephrectomy. ASSESSMENT: Evidence of cholelithiasis and cholecystitis, as discussed above. Electronically authenticated by: ADELFO SOMMER Date: 06/14/2024 10:40
--- NOTE | 2024-06-14 08:38 | PM.GSCN ---
History of Present Illness Consult details Consult date: 06/14/24 Reason for consult: gallstones Narrative: Jatinder Spears is a 78 yo M who presented to the ER yesterday with RUQ pain noted to be 10/10 in severity and chills. CMP demonstrated elevated LFTs, and abdominal CT demonstrated cholelithiasis with mild pericholecystic inflammation. The patient was placed on IV Zosyn and general surgery was consulted. Patient states that his abdominal pain started when he woke up at 10 am yesterday, localized across the upper aspect of his abdomen, and accompanied by chills. Currently, the patient describes his abdominal pain as a dull ache, and states that he has been on pain medicine constantly since initiating treatment. Patient states he has not eaten food in 2 days. He notes that he continues to have bowel movements. He denies fevers, dyspepsia, hematemesis, hematochezia, melena, chest pain, dyspnea. He states that over the past two years he has lost his appetite and notes losing 30-40 pounds without trying. He states his diet changed when he acquired false teeth, which he had to purchase twice. He notes undergoing several colonoscopies in [place] at the [place]. He initially presented with several polyps, which were removed, but states his last colonoscopy was over a year and a half ago and was normal. He states he is a who suffered agent orange and is on disability. He notes working in [employer] for 20 years. He lives alone and states he does not have any next of kin, friends or support system. His PCP is [place] [address] CT Scan Report Signed Patient: JATINDER PABLO MR#: [id number] : 1945 Acct:[id number] Age/Sex: 78 / M ADM Date: 06/13/24 Loc: ER Attending Dr: Ordering Physician: Latia Aparicio M.D. Date of Service: 06/13/24 Procedure(s): CT abdomen pelvis wo con Accession Number(s): [id number] cc: JERRICA QUINTERO ~ The [place] [id number] Patient Name: JATINDER PABLO MRN: [facility]:[id number] date: 1945 Sex: M Assigned Patient Location: ER Current Patient Location: ER Accession/Order Number: [id number] Exam Date: 06/13/2024 23:49 Report Date: 06/14/2024 04:33 At the request of: LATIA APARICIO Procedure: CT abdomen pelvis wo con EXAM: CT abdomen pelvis wo con HISTORY: Right sided pain, history of right nephrectomy COMPARISON: CT abdomen and pelvis examination dated 04/19/2023. TECHNIQUE: Noncontrast axial CT images through the abdomen and pelvis were obtained with coronal and sagittal reformats. Dose reduction techniques were achieved by using automated exposure control and/or adjustment of mA and/or kV according to patient size and/or use of iterative reconstruction technique. FINDINGS: There is bibasilar atelectasis and/or scarring. Cardiac pacemaker leads are partially imaged. There is mild cardiomegaly. There is coronary artery disease. There is a small hiatal hernia. Abdomen: Please note that the sensitivity for detection of focal lesions or vascular disease is markedly reduced without intravenous contrast. The liver and spleen are unremarkable. There is no intra or extrahepatic biliary duct dilatation. There is cholelithiasis with mild pericholecystic inflammation. The patient is status post a right nephrectomy. There are a few left renal cysts. There is a hemorrhagic or proteinaceous left renal cyst measuring up to 1.0 cm (series 3, image 65). There are a few additional small suspected hemorrhagic or proteinaceous left renal cysts. The pancreas, adrenal glands, and the appendix are unremarkable. There is no mesenteric or retroperitoneal lymphadenopathy. There is colonic diverticulosis with mild inflammatory changes about the proximal sigmoid colon. There are a few small fat-containing peribuccal hernias. Pelvis: The bladder demonstrates wall thickening. The rectum is unremarkable. There is no iliac or inguinal lymphadenopathy. There is marked prostatomegaly. There is moderate to advanced atherosclerotic disease. Bone windows show no aggressive osseous lesions. 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 CT/CT abdomen pelvis wo con IMPRESSION: 1. Cholelithiasis with mild pericholecystic inflammation. Consider further evaluation with a right upper quadrant examination as these findings could represent acute cholecystitis. 2. Mild cardiomegaly with coronary artery disease. 3. Status post right nephrectomy. 4. Left renal cysts including a few hemorrhagic or proteinaceous cysts. 5. Normal appendix. 6. Colonic diverticulosis with mild inflammatory changes about the proximal sigmoid colon, concerning for diverticulitis or a focal colitis. 7. Prostamegaly. 8. Urinary bladder wall thickening which could be secondary to chronic outlet obstruction from the prostatomegaly; however, please correlate with urinalysis for infection. 9. 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 Electronically authenticated by: Kane SALTER Date: 06/14/2024 04:33 Dictated By: Octaviano Salter M.D. Signed By: 06/14/247 DD/ 2 TD/TT: Collar Closer Lockstitch: Review of Systems ROS Status of ROS 10 or more systems reviewed and unremarkable except as noted in history and below [facility] Medical History (Updated 06/14/24 @ 10:10 by Shaikh Siddharth MD) CKD (chronic kidney disease) stage 4, GFR 15-29 ml/min ?N18.4 - Chronic kidney disease, stage 4 (severe) (ICD-10) HLD (hyperlipidemia) ?E78.5 - Hyperlipidemia, unspecified (ICD-10) Type 2 diabetes mellitus ?E11.9 - Type 2 diabetes mellitus without complications (ICD-10) HTN (hypertension) ?I10 - Essential (primary) hypertension (ICD-10) Cardiac pacemaker in situ ?Z95.0 - Presence of cardiac pacemaker (ICD-10) Afib ?I48.91 - Unspecified atrial fibrillation (ICD-10) CAD (coronary artery disease) ?I25.10 - Atherosclerotic heart disease of [place] coronary artery without angina pectoris (ICD-10) Surgical History H/O right nephrectomy ?Z90.5 - Acquired absence of kidney (ICD-10) Social History Within the past year, how often did you have a drink containing alcohol: monthly or less Within the past year, how many standard drinks containing alcohol did you have on a typical day: 1 or 2 Within the past year, how often did you have six or more drinks on one occasion: never Total score: 0 Score interpretation: A score less than 4 is consistent with normal alcohol consumption. Smoking status: Never smoker Non-prescribed substance use: denies use Highest level of school completed/degree received: high school graduate Meds Home Medications and Allergies Allergies Allergy/AdvReac Type Severity Reaction Status Date / Time No Known Drug Allergies Allergy Verified 06/13/24 22:56 Exam Constitutional Vital Signs, click to edit/add: Last Vital Signs Temp 98.4 F 06/14/24 07:22 Pulse 64 06/14/24 08:00 Resp 16 06/14/24 07:22 BP 111/60 06/14/24 07:22 Pulse Ox 94 L 06/14/24 07:45 O2 Del Method Room Air 06/14/24 07:45 Documenting provider has reviewed patient's vital signs: yes Common normals: average body habitus, oriented x3, healthy appearing, alert and well nourished Respiratory Common normals: clear to auscultation bilaterally Cardio Common normals: regular rate and regular rhythm GI Common normals: Normal to inspection, nondistended, normoactive bowel sounds present Neuro Common normals: oriented x3 and CN's II-XII intact bilaterally Results Labs Labs: Abnormal lab results 06/13/24 06/14/24 Range/Units 23:00 04:40 RBC 4.00 L (4.70-6.10) 10^6/uL Hgb 12.4 L (14.0-18.0) g/dL Hct 37.1 L (42.0-54.0) % Plt Count 127 L (150-450) 10^3/uL Neut % (Auto) 87.5 H (43.0-75.0) % Lymph % (Auto) 7.0 L (20.5-60.0) % Eos % (Auto) 0.2 L (0.9-7.0) % Neut # (Auto) 8.1 H (1.4-6.5) 10^3/uL Lymph # (Auto) 0.7 L (1.2-3.8) 10^3/uL Sodium 133 L (136-145) mmol/L Potassium 5.6 H (3.5-5.1) mmol/L Carbon Dioxide 19.5 L (21.0-32.0) mmol/L BUN 52.0 H (7.0-18.0) mg/dL Creatinine 2.40 H (0.70-1.30) mg/dL Est GFR ( Amer) 32 L (>=60) Est GFR (Non-Af Amer) 26 L (>=60) Glucose 189 H (74-106) mg/dL Total Bilirubin 1.3 H (0.2-1.0) mg/dL Direct Bilirubin 0.8 H* (0.0-0.2) mg/dL AST 586 H* (15-37) U/L ALT 399 H (16-63) U/L Alkaline Phosphatase 196 H (46-116) U/L Total Protein 6.2 L (6.4-8.2) g/dL Ur Leukocyte Esterase Small A (NEGATIVE) Urine WBC 10-20 A (NONE SEEN) #/HPF Ur Transition Epith Cell Few A (NONE SEEN) #/LPF Urine Casts Seen A (NONE SEEN) #/LPF Urine Mucus Trace A (NONE SEEN) Diabetes panel 06/13/24 Range/Units 23:00 Sodium 133 L (136-145) mmol/L Potassium 5.6 H (3.5-5.1) mmol/L Chloride 104 (98-107) mmol/L Carbon Dioxide 19.5 L (21.0-32.0) mmol/L BUN 52.0 H (7.0-18.0) mg/dL Creatinine 2.40 H (0.70-1.30) mg/dL Glucose 189 H (74-106) mg/dL Calcium 9.1 (8.5-10.1) mg/dL AST 586 H* (15-37) U/L ALT 399 H (16-63) U/L Alkaline Phosphatase 196 H (46-116) U/L Total Protein 6.2 L (6.4-8.2) g/dL Albumin 3.7 (3.4-5.0) g/dL Calcium panel 06/13/24 Range/Units 23:00 Calcium 9.1 (8.5-10.1) mg/dL Albumin 3.7 (3.4-5.0) g/dL Pituitary panel 06/13/24 Range/Units 23:00 Sodium 133 L (136-145) mmol/L Potassium 5.6 H (3.5-5.1) mmol/L Chloride 104 (98-107) mmol/L Carbon Dioxide 19.5 L (21.0-32.0) mmol/L BUN 52.0 H (7.0-18.0) mg/dL Creatinine 2.40 H (0.70-1.30) mg/dL Glucose 189 H (74-106) mg/dL Calcium 9.1 (8.5-10.1) mg/dL Adrenal panel 06/13/24 Range/Units 23:00 Sodium 133 L (136-145) mmol/L Potassium 5.6 H (3.5-5.1) mmol/L Chloride 104 (98-107) mmol/L Carbon Dioxide 19.5 L (21.0-32.0) mmol/L BUN 52.0 H (7.0-18.0) mg/dL Creatinine 2.40 H (0.70-1.30) mg/dL Glucose 189 H (74-106) mg/dL Calcium 9.1 (8.5-10.1) mg/dL Total Bilirubin 1.3 H (0.2-1.0) mg/dL AST 586 H* (15-37) U/L ALT 399 H (16-63) U/L Alkaline Phosphatase 196 H (46-116) U/L Total Protein 6.2 L (6.4-8.2) g/dL Albumin 3.7 (3.4-5.0) g/dL All other labs normal. Imaging Abdomen CT scan report/results: report reviewed Abdominal ultrasound report/results: report reviewed Assessment and Plan Assessment and Plan (1) Acute cholecystitis: (2) Gallstones: (3) Chronic renal disease: (4) CKD (chronic kidney disease) stage 4, GFR 15-29 ml/min: (5) HLD (hyperlipidemia): Qualifiers: Hyperlipidemia type: mixed hyperlipidemia Qualified Code(s): E78.2 - Mixed hyperlipidemia (6) Type 2 diabetes mellitus: Qualifiers: Diabetes mellitus extermination inspector insulin use: without extermination inspector use Diabetes mellitus complication status: with kidney complications Diabetes mellitus complication detail: with chronic kidney disease Chronic kidney disease stage: stage 4 (severe) Qualified Code(s): E11.22 - Type 2 diabetes mellitus with diabetic chronic kidney disease; N18.4 - Chronic kidney disease, stage 4 (severe) (7) HTN (hypertension): Qualifiers: Hypertension type: primary hypertension Qualified Code(s): I10 - Essential (primary) hypertension (8) Cardiac pacemaker in situ: (9) Afib: Qualifiers: Atrial fibrillation type: paroxysmal Qualified Code(s): I48.0 - Paroxysmal atrial fibrillation (10) CAD (coronary artery disease): Qualifiers: Coronary Disease-Associated Artery/Lesion type: [place] artery [place] vs. transplanted heart: [place] heart Associated angina: without angina Qualified Code(s): I25.10 - Atherosclerotic heart disease of [place] coronary artery without angina pectoris (11) H/O right nephrectomy: Plan Ultrasound of right upper quadrant which was performed and shows acute cholecystitis with cholelithiasis; Patient offered robotic cholecystectomy with IC-Green and risks benefits and alternatives to the procedure may include infection, bleeding, bile duct injury, blood clots to legs or lungs, pneumonia, heart attack, stroke, and/or . He voiced understanding of the above and wished to proceed.
--- NOTE | 2024-06-14 10:02 | PM.HP ---
HPI H&P: HPI History of Present Illness Chief complaint: ABDOMINAL PAIN, FLANK PAIN Narrative: 78-year-old male was in his usual state of health when he woke up yesterday morning with sudden onset generalized abdominal pain along with nausea and anorexia. He continued to have persistent abdominal pain with progressive worsening intensity until last evening when he decided to come to ED. Workup in ED showed possible acute cholecystitis along with acute liver injury for which she was admitted overnight for observation and started on IV fluids, IV antibiotics. Patient reports that his abdominal pain is much better but he still feels a little tender. His pain is generalized and more severe in bilateral lower quadrants. He denies diarrhea, constipation, blood in stool. He denies vomiting. Patient has history of coronary artery disease and is unsure whether or not he has history of congestive heart failure. His last coronary intervention was about 10 years ago and since then he has been stable from cardiovascular point of view and denies chest pain, palpitations. He reports chronic exertional dyspnea and fatigue for 2 years for which he was evaluated from a cardiopulmonary point of view. Patient reported that he had a normal nuclear stress test about 1 year ago. Opioid HPI Opioid Management Most Recent Pain and Opioid Data: Last Pain Scale 3 06/14/24 10:00 Last Pain Assessment 06/14/24 10:00 Last ED Pain Assessment 06/13/24 22:56 Last MAR Pain Assessment 06/14/24 05:23 Last ORT Total Score 0 06/14/24 06:38 Last ORT Risk Category Low Risk 06/14/24 06:38 Review of Systems ROS Status of ROS 10 or more systems reviewed and unremarkable except as noted in history and below PFSH [facility] Medical History (Updated 06/14/24 @ 10:10 by Shaikh Siddharth MD) CKD (chronic kidney disease) stage 4, GFR 15-29 ml/min ?N18.4 - Chronic kidney disease, stage 4 (severe) (ICD-10) HLD (hyperlipidemia) ?E78.5 - Hyperlipidemia, unspecified (ICD-10) Type 2 diabetes mellitus ?E11.9 - Type 2 diabetes mellitus without complications (ICD-10) HTN (hypertension) ?I10 - Essential (primary) hypertension (ICD-10) Cardiac pacemaker in situ ?Z95.0 - Presence of cardiac pacemaker (ICD-10) Afib ?I48.91 - Unspecified atrial fibrillation (ICD-10) CAD (coronary artery disease) ?I25.10 - Atherosclerotic heart disease of [place] coronary artery without angina pectoris (ICD-10) Surgical History (Updated 06/14/24 @ 10:08 by Shaikh Siddharth MD) H/O right nephrectomy ?Z90.5 - Acquired absence of kidney (ICD-10) Social History (Updated 06/14/24 @ 10:08 by Shaikh Siddharth MD) Within the past year, how often did you have a drink containing alcohol: monthly or less Within the past year, how many standard drinks containing alcohol did you have on a typical day: 1 or 2 Within the past year, how often did you have six or more drinks on one occasion: never Total score: 0 Score interpretation: A score less than 4 is consistent with normal alcohol consumption. Smoking status: Never smoker Non-prescribed substance use: denies use Highest level of school completed/degree received: high school graduate Meds Home Medications and Allergies Allergies Allergy/AdvReac Type Severity Reaction Status Date / Time No Known Drug Allergies Allergy Verified 06/13/24 22:56 Exam Constitutional Vital Signs, click to edit/add: Last Vital Signs Temp 98.4 F 06/14/24 07:22 Pulse 64 06/14/24 08:00 Resp 16 06/14/24 07:22 BP 111/60 06/14/24 07:22 Pulse Ox 94 L 06/14/24 07:45 O2 Del Method Room Air 06/14/24 07:45 Documenting provider has reviewed patient's vital signs: yes Common normals: no apparent distress and oriented x3 General appearance: cooperative HENMT Common normals: normocephalic and head/scalp atraumatic Head and scalp: normocephalic and atraumatic Respiratory Common normals: normal respiratory effort and clear to auscultation bilaterally Effort & inspection: able to speak in complete sentences Auscultation: clear to auscultation bilaterally Cardio Common normals: regular rate, S1 normal heart sound and S2 normal heart sound Rate: regular rate Heart sounds: S1 normal and S2 normal GI Common normals: Normal to inspection, nondistended, normoactive bowel sounds present, soft to palpation and no hepatosplenomegaly Palpation: soft, tender (mild generalized tenderness) and no hepatosplenomegaly Extremity Common normals: no clubbing, cyanosis or edema Neuro Common normals: oriented x3, moves all extremities and no focal motor deficits Psych Common normals: mental status grossly normal, denies hallucinations, denies homicidal ideation and denies suicidal ideation Results Labs Labs: Short CBC 06/13/24 Range/Units 23:00 WBC 9.2 (4.0-11.0) 10^3/uL Hgb 12.4 L (14.0-18.0) g/dL Hct 37.1 L (42.0-54.0) % Plt Count 127 L (150-450) 10^3/uL BMP 06/13/24 23:00 Sodium 133 L Potassium 5.6 H Chloride 104 Carbon Dioxide 19.5 L BUN 52.0 H Creatinine 2.40 H Glucose 189 H Calcium 9.1 Liver Function 06/13/24 Range/Units 23:00 Total Bilirubin 1.3 H (0.2-1.0) mg/dL Direct Bilirubin 0.8 H* (0.0-0.2) mg/dL AST 586 H* (15-37) U/L ALT 399 H (16-63) U/L Alkaline Phosphatase 196 H (46-116) U/L Albumin 3.7 (3.4-5.0) g/dL Urine 06/14/24 Range/Units 04:40 Urine Color Yellow (YELLOW) Urine Clarity Clear (CLEAR) Urine pH 5.5 (5.0-9.0) Ur Specific [place] 1.025 (1.005-1.025) Urine Protein Trace (NEG/TRACE) mg/dL Urine Glucose (UA) Negative (NEGATIVE) mg/dL Assessment and Plan Assessment and Plan (1) Acute cholecystitis: Assessment and Plan: Suspected acute cholecystitis. On IV fluids, IV Zosyn. Ultrasound of right upper quadrant is pending. General surgery evaluation is pending. (2) Abnormal liver function: Assessment and Plan: Abnormal LFTs likely because of acute cholecystitis. Hold hepatotoxic drugs. Monitor liver function closely (3) CAD (coronary artery disease): Assessment and Plan: History of PCI 10 years ago. He had a normal nuclear stress test according to the patient 1 year ago. He reports chronic exertional dyspnea and fatigue for which she is being worked up as outpatient for past 2 years with no specific etiology determined Qualifiers: Coronary Disease-Associated Artery/Lesion type: [place] artery [place] vs. transplanted heart: [place] heart Associated angina: without angina Qualified Code(s): I25.10 - Atherosclerotic heart disease of [place] coronary artery without angina pectoris (4) Afib: Assessment and Plan: Status post permanent pacemaker. He is on Eliquis. His last dose was Saturday night. Qualifiers: Atrial fibrillation type: paroxysmal Qualified Code(s): I48.0 - Paroxysmal atrial fibrillation (5) CKD (chronic kidney disease) stage 4, GFR 15-29 ml/min: Assessment and Plan: CKD likely because of type 2 diabetes/nephrectomy. Monitor renal function. (6) Type 2 diabetes mellitus: Assessment and Plan: Patient is unsure of his home medications. 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 Confirm patient's home medication list and resume if appropriate Qualifiers: Hypertension type: primary hypertension Qualified Code(s): I10 - Essential (primary) hypertension (8) Cardiac pacemaker in situ: Assessment and Plan: Permanent pacemaker in place for A-fib (9) Diverticulosis large intestine w/o perforation or abscess w/o bleeding: Assessment and Plan: Diverticulosis noted on CT scan with possible focal area of inflammation. He is on IV antibiotics. (10) HLD (hyperlipidemia): Assessment and Plan: Patient is presumably on a statin but will need to confirm his home medications. Even if he is on a statin, it will need to be withheld due to acute liver injury Qualifiers: Hyperlipidemia type: mixed hyperlipidemia Qualified Code(s): E78.2 - Mixed hyperlipidemia
[2024-06-14 10:11] LABS: Basophils Percent Auto 0.1 % (0.2-2.0); Hematocrit 35.7 % (42.0-54.0); Hemoglobin 11.9 g/dL (14.0-18.0); Immature Granulocytes Abs Auto 0.01 10^3/uL (0.00-0.03); Immature Granulocytes Pct Auto 0.1 % (0.0-0.5); Lymphocytes Absolute Auto 0.2 10^3/uL (1.2-3.8); Lymphocytes Percent Auto 2.2 % (20.5-60.0); Mean Corpuscular HGB Conc 33.3 g/dL (29.9-35.2); Mean Corpuscular Hemoglobin 31.2 pg (25.9-34.0); Mean Corpuscular Volume 93.5 fL (80.0-94.0); Mean Platelet Volume 10.6 fL (9.5-13.5); Monocytes Absolute Auto 0.5 10^3/uL (0.3-0.8); Monocytes Percent Auto 5.8 % (1.7-12.0); Neutrophils Percent Auto 91.8 % (43.0-75.0); Platelet Count 109 10^3/uL (150-450); Red Blood Count 3.82 10^6/uL (4.70-6.10); Red Cell Distribution Width 13.5 % (11.0-15.0); White Blood Count 8.7 10^3/uL (4.0-11.0)
[2024-06-14 10:35] LABS: Albumin Globulin Ratio 1.3; Albumin Level 3.2 g/dL (3.4-5.0); Alkaline Phosphatase 220 U/L (46-116); Anion Gap 17.5; BUN Creatinine Ratio 20.5; Bilirubin Total 2.5 mg/dL (0.2-1.0); Calcium 8.8 mg/dL (8.5-10.1); Carbon Dioxide 18.2 mmol/L (21.0-32.0); Chloride 106 mmol/L (98-107); Estimated GFR (African America 29 (>=60); Estimated GFR (Non-African Ame 24 (>=60); Globulin 2.4 g/dL; Glucose 131 mg/dL (74-106); Potassium 5.7 mmol/L (3.5-5.1); Sodium 136 mmol/L (136-145); Total Protein 5.6 g/dL (6.4-8.2)
[2024-06-14 10:54] LABS: Alanine Aminotransferase 1195 U/L (16-63); Aspartate Amino Transferase 1474 U/L (15-37)
[2024-06-14] MEDS: INDOCYANINE GREEN 25 MG VIAL INJ (11:25)
--- NOTE | 2024-06-14 14:03 | PM.GSPRC ---
Date of procedure: 06/14/24 Indications for Procedure: Acute cholecystitis with cholelithiasis Pre-op diagnosis: Acute cholecystitis with cholelithiasis Post-op diagnosis: same as pre-op Procedure: Robotic cholecystectomy with IC-Green Extensive lysis of abdominal adhesions requiring 45 minutes CPT?22 additional Findings: Acute cholecystitis with cholelithiasis Anesthesia: DANETTE Surgeon: [place] Procedure Summary: After again explaining the risks and benefits of the procedure in the preoperative care unit consent was obtained. ?The patient was taken back to the operative room and placed on the operative room table. General endotracheal anesthesia was induced and preoperative antibiotics were given. ?Appropriate time-out was performed. ?Right arm was?tucked at the side. ?Then the bed was positioned appropriately. ?The abdomen was prepped and draped in normal sterile fashion. A periumbilical incision was made. ?Dissection was carried down to the fascia. ?Fascia was elevated with alison clamps and entered sharply. A 12 mm port was placed into the abdomen and the abdomen was insufflated, there were no complications with insufflation. ?The scope and camera was brought in and then 3 more ports were placed with difficulty due to multiple abdominal adhesions from her prior robotic nephrectomy. He had adhesions of omentum to the anterior abdominal wall which were taken down with sharp scissors and cautery and a peanut dissector partially.. An 8?mm port was placed in the right lateral position. Two additional?8 mm Davinci ports were placed, 8 cm to the left and one to the right of the umbilicus. ?The patient was then placed in reverse Trendelenburg position and slightly turned to the left. The [employer] robot was docked. I then performed further lysis of adhesions with the bipolar cautery and the hook cautery maintaining hemostasis. There was no bowel in the area. Once a large enough window was made in the adhesions in order to get over to the gallbladder and liver and right upper quadrant scissors and peanut dissector removed. This required an additional 45 minutes of time to perform. The 4th arm was used to grasp the dome of the gallbladder superiorly. ?The peritoneal attachments were taken down with meticulous dissection laterally and medially from the gallbladder. ?At this point the infundibular gallbladder was retracted laterally and a critical view was obtained. ?With the cystic duct inferiorly cystic artery medially and the liver posteriorly. ?Two clips were placed on the patient side and 1 on the specimen side of both the cystic duct and the cystic artery. ?These were then excised. ?The remainder of the gallbladder was taken off of the gallbladder fossa using electrocautery. The gallbladder was then removed through the umbilical port using Endo-Catch bag. ?The gallbladder fossa was visualized again to confirm no bleeding and no leak from the cystic duct. The robot was undocked from the patient. The abdomen was deinsufflated.? The umbilical incision fascia was closed with a [id number] 0 Vicryl. The skin was closed at all the incisions with 4 0 Monocryl. All incisions and underlying muscle was anesthetized with local anesthetic.? Dermabond was then placed over the incisions. The patient was extubated and had no immediate postoperative complications. Patient was taken to the PACU in stable condition. Delivery And Installation Subcontractor: JYOTHI Cornejo Estimated blood loss (mL): 5 Specimens: Gallbladder and stones Complications: No Condition: stable Disposition: PACU
[2024-06-14] MEDS: HYDROMORPHONE HCL 0.5 MG/0.5 ML SYRINGE IV ×4 (14:30→14:49)
[2024-06-14] MEDS: OXYCODONE HCL/ACETAMINOPHEN 5MG/325MG 1 TAB PO ×2 (15:13→20:33)
[2024-06-14] MEDS: ONDANSETRON PF 4 MG/2 ML VIAL IV ×2 (15:47→20:16)
[2024-06-14] MEDS: MORPHINE SULFATE 2 MG/ML SYRINGE IV (18:54)
[2024-06-15] VITALS (21 sets, daily range): BP systolic 103–155; BP diastolic 6–88; PULSE 81–108; TEMP 36.4–37.2; O2SAT 88–95
[2024-06-15] MEDS: TEMAZEPAM 15 MG CAPSULE PO (00:49)
[2024-06-15] MEDS: 0.9 % SODIUM CHLORIDE 1,000 ML 100 ML IV (04:55)
[2024-06-15] MEDS: PIPERACILLIN SODIUM/TAZOBACTAM 3.375 GM in 0.9 % SODIUM CHLORIDE 50 ML IV ×3 (04:57→21:18)
[2024-06-15 05:00] LABS: Basophils Percent Auto 0.1 % (0.2-2.0); Eosinophils Percent Auto 0.1 % (0.9-7.0); Hemoglobin 11.4 g/dL (14.0-18.0); Immature Granulocytes Abs Auto 0.01 10^3/uL (0.00-0.03); Immature Granulocytes Pct Auto 0.1 % (0.0-0.5); Lymphocytes Absolute Auto 0.2 10^3/uL (1.2-3.8); Lymphocytes Percent Auto 1.9 % (20.5-60.0); Mean Corpuscular HGB Conc 32.6 g/dL (29.9-35.2); Mean Corpuscular Hemoglobin 31.1 pg (25.9-34.0); Mean Corpuscular Volume 95.6 fL (80.0-94.0); Mean Platelet Volume 10.3 fL (9.5-13.5); Monocytes Absolute Auto 0.2 10^3/uL (0.3-0.8); Monocytes Percent Auto 2.2 % (1.7-12.0); Neutrophils Absolute Auto 7.7 10^3/uL (1.4-6.5); Neutrophils Percent Auto 95.6 % (43.0-75.0); Platelet Count 94 10^3/uL (150-450); Red Blood Count 3.66 10^6/uL (4.70-6.10); Red Cell Distribution Width 13.9 % (11.0-15.0)
[2024-06-15 05:10] LABS: INR 1.33; Partial Thromboplastin Time 35.8 sec (22.3-36.2); Prothrombin Time 13.7 sec (9.0-11.6)
[2024-06-15 05:21] LABS: Albumin Globulin Ratio 1.1; Albumin Level 2.7 g/dL (3.4-5.0); Alkaline Phosphatase 188 U/L (46-116); Anion Gap 13.8; Aspartate Amino Transferase 459 U/L (15-37); BUN Creatinine Ratio 16.5; Bilirubin Total 4.7 mg/dL (0.2-1.0); Calcium 8.1 mg/dL (8.5-10.1); Carbon Dioxide 19.6 mmol/L (21.0-32.0); Chloride 106 mmol/L (98-107); Estimated GFR (African America 26 (>=60); Estimated GFR (Non-African Ame 22 (>=60); Globulin 2.4 g/dL; Glucose 94 mg/dL (74-106); Sodium 133 mmol/L (136-145); Total Protein 5.1 g/dL (6.4-8.2)
[2024-06-15 05:23] LABS: Magnesium 1.4 mg/dL (1.8-2.4); Phosphorus 4.5 mg/dL (2.6-4.7)
[2024-06-15 05:27] LABS: Alanine Aminotransferase 780 U/L (16-63)
[2024-06-15 05:28] LABS: Potassium 6.4 mmol/L (3.5-5.1)
--- NOTE | 2024-06-15 05:47 | PC.NURSE ---
Paged [employer] re: K+6.4 and ALT [phone]
--- NOTE | 2024-06-15 07:17 | PM.GSPN ---
Progress Note: A&P Assessment and Plan (1) Acute cholecystitis: (2) Gallstones: (3) Chronic renal disease: (4) CKD (chronic kidney disease) stage 4, GFR 15-29 ml/min: (5) HLD (hyperlipidemia): Qualifiers: Hyperlipidemia type: mixed hyperlipidemia Qualified Code(s): E78.2 - Mixed hyperlipidemia (6) Type 2 diabetes mellitus: Qualifiers: Chronic kidney disease stage: stage 4 (severe) Diabetes mellitus complication detail: with chronic kidney disease Diabetes mellitus complication status: with kidney complications Diabetes mellitus custodial insulin use: without dialysis chief equipment technician use Qualified Code(s): E11.22 - Type 2 diabetes mellitus with diabetic chronic kidney disease; N18.4 - Chronic kidney disease, stage 4 (severe) (7) HTN (hypertension): Qualifiers: Hypertension type: primary hypertension Qualified Code(s): I10 - Essential (primary) hypertension (8) Cardiac pacemaker in situ: (9) Afib: Qualifiers: Atrial fibrillation type: paroxysmal Qualified Code(s): I48.0 - Paroxysmal atrial fibrillation (10) CAD (coronary artery disease): Qualifiers: Associated angina: without angina Coronary Disease-Associated Artery/Lesion type: [place] artery [place] vs. transplanted heart: [place] heart Qualified Code(s): I25.10 - Atherosclerotic heart disease of [place] coronary artery without angina pectoris (11) H/O right nephrectomy: Plan S/P Robotic Laparoscopic Cholecystectomy, Post-op Day 1 Hyperkalemia with transaminitis, continue to monitor on CMP tomorrow HIDA scan without CCK r/o common bile duct stone Continue IV Fluids, PO diet May need ERCP if LFT's not better tomorrow. Subjective Subjective Patient reports: still having pain, tolerating liquids well, no flatus, no bowel movement, nausea and afebrile Interval history: 78 yo M s/p robotic laparoscopic cholecystectomy post op day 1. Postoperatively the patient had have a El catheter placed. Patient states that he was up last night with diffuse abdominal pain and states he felt bloated. He was taken for walks through the halls last night. He was noted to be belching but no for tattoos. Last bowel movement was 2 days ago. Oxycodone provides minimal relief. He continues to have intermittent nausea. He is tolerating liquids okay, but he has not eaten any food. Exam Constitutional Vital Signs, click to edit/add: Last Vital Signs Temp 98.3 F 06/14/24 22:00 Pulse 108 H 06/15/24 06:00 Resp 18 06/14/24 22:00 BP 105/68 06/14/24 22:00 Pulse Ox 95 06/15/24 04:02 O2 Del Method Nasal Cannula 06/15/24 04:02 O2 Flow Rate 3 06/15/24 04:02 Documenting provider has reviewed patient's vital signs: yes General appearance: cooperative and comfortable Orientation/consciousness: Yes awake HENMT Common normals: normocephalic, head/scalp atraumatic, hearing grossly normal bilaterally and external ears normal Chest Common normals: inspection of chest normal Respiratory Common normals: normal respiratory effort and no use of accessory muscles Auscultation: rhonchi throughout Cardio Common normals: no JVD, regular rate and regular rhythm GI Inspection: normal to inspection and abdominal distension Auscultation: hypoactive bowel sounds Palpation: soft and tender (diffusely tender throughout); no guarding and not rigid Percussion: normal to percussion Other: 2 cm incisions present at umbilicus, LUQ, RLQ-medial inf, lateral superior. Steri-strips still in place, no erythema, edema, or drainage noted. Bladder/kidney exam: no catheter in place Extremity Common normals: normal to inspection and no clubbing, cyanosis or edema Neuro Sensorium/orientation: awake and alert Psych Common normals: cooperative and affect normal Urinary Catheter Management Urinary Catheter Management Straight: Cath placed during this visit: yes Urethral indwelling: No Insertion date: 06/15/24 Insertion time: 01:00 Date and Time Date and Time of Service Date of service: 06/15/24 Time: 06:20
--- NOTE | 2024-06-15 08:30 | CM.NOTE ---
Rounds made with Dr. Messina, pt c/o bladder fullness and unable to void. Dr. Messina spoke with RN about bladder scan and possible murphy insertion. Awaiting Dr. Beach to see pt for further plan of care recommendations. PT and OT will evaluate pt.
[2024-06-15] MEDS: INSULIN REGULAR, HUMAN (100 UNIT/ML) 10 ML MDV 10 UNIT IV (08:57)
[2024-06-15] MEDS: DEXTROSE 50 %-WATER 25 GM/50 ML SYRINGE IV (08:57)
[2024-06-15] MEDS: ONDANSETRON PF 4 MG/2 ML VIAL IV (08:57)
[2024-06-15] MEDS: SODIUM POLYSTYRENE SULFON 15 GM/60 ML ORAL.SUSP KAYEXALATE PO (08:57)
--- NOTE | 2024-06-15 09:08 | NM_ITS ---
[address] [address] Patient Name: ALY PABLO MRN: [id number] date: 1945 Sex: M Assigned Patient Location: [place] Current Patient Location: [place] Accession/Order Number: [id number] Exam Date: 06/15/2024 14:10 Report Date: 06/16/2024 10:04 At the request of: LEXA CASTRO Procedure: NM hepatobiliary wo pharm EXAMINATION: NM hepatobiliary wo pharm HISTORY: hyperbilirubinemia and transaminitis COMPARISON: No relevant comparison available. TECHNIQUE: Radionuclide hepatobiliary imaging was performed after intravenous injection of 6.5 mCi Tc-99m mebrofenin with sequential acquisitions every 1 minute for one hour. FINDINGS: LIVER: Normal, prompt and uniform radiotracer uptake and clearing. BILIARY DUCTS: Normal radioisotopic biliary excretion. GALLBLADDER: Not visualized consistent with cholecystectomy INTESTINE: Small bowel is visualized at 50 minutes OTHER: No definite biliary leak observed NM/[place] hepatobiliary wo pharm IMPRESSION: No biliary leak observed Electronically authenticated by: DAVID PEGUERO Date: 06/16/2024 10:04
[2024-06-15 10:29] LABS: Glucometer 173 mg/dL (74-106)
[2024-06-15] MEDS: OXYCODONE HCL/ACETAMINOPHEN 5MG/325MG 1 TAB PO (11:25)
--- NOTE | 2024-06-15 12:08 | CM.NOTE ---
Important Message From Medicare discussed with pt, pt verbalizes understanding and signs paper. Original given to pt and copy placed in pt's chart.
--- NOTE | 2024-06-15 12:11 | SWNOTE1 ---
SW spoke to case management in regards to plans for discharge for pt. He lives at home alone, has a cane but usually is independent. Pt had voiced to case management he is open to home health services and he does not want to be asked to pick a company, he would like for dischargers to just set it up. SW did review PT/OT notes and pt would benefit from home health. Referral sent to [address] Referral included face sheet, ED note, H&P, provider notes, surgeon notes, and PT/OT notes.
--- NOTE | 2024-06-15 13:34 | SWNOTE1 ---
SW received a message that [address] is accepting.
--- NOTE | 2024-06-15 13:55 | PM.IMPN1 ---
Progress Note: A&P Assessment and Plan (1) Acute cholecystitis: Assessment and Plan: s/p lap [place]. To[place] PO diet. Pain is reasonably controlled. (2) LUCILA (acute kidney injury): Assessment and Plan: Worsening renal function with hyperkalemia. Cr is now 2.8, baseline is around 2.0. Likely multifactorial and due to a combination of acute illness/hemodynamic stress from surgery/bladder outlet obstruction El catheter placed. Monitor UO closely, might need fluid challenge if no improvement. (3) Hyperkalemia: Assessment and Plan: Given IV insulin/kayaxelate. Recheck ordered at 2 pm (4) Abnormal liver function: Assessment and Plan: AST/ALT have improved from yesterday. But bilirubin is still quite high. HIDA scan ordered by general surgery to r/o residual obstruction/stones in CBD Will need close monitoring and f/u to ensure liver enzymes are improving. Initially plan was to order MRCP but unable to do so due to presence of the pacemaker. (5) CKD (chronic kidney disease) stage 4, GFR 15-29 ml/min: Assessment and Plan: CKD 4 with baseline cr of around 2. Has LUCILA with hyperkalemia. Discussed separately. (6) HLD (hyperlipidemia): Assessment and Plan: Hold statins Qualifiers: Hyperlipidemia type: mixed hyperlipidemia Qualified Code(s): E78.2 - Mixed hyperlipidemia (7) Type 2 diabetes mellitus: Assessment and Plan: SSI while in patient. Qualifiers: Diabetes mellitus meterman insulin use: without assisted use Diabetes mellitus complication status: with kidney complications Diabetes mellitus complication detail: with chronic kidney disease Chronic kidney disease stage: stage 4 (severe) Qualified Code(s): E11.22 - Type 2 diabetes mellitus with diabetic chronic kidney disease; N18.4 - Chronic kidney disease, stage 4 (severe) (8) HTN (hypertension): Assessment and Plan: Stable blood pressure. Monitor. Qualifiers: Hypertension type: primary hypertension Qualified Code(s): I10 - Essential (primary) hypertension (9) Cardiac pacemaker in situ: Assessment and Plan: For Afib. (10) Afib: Assessment and Plan: Will resume eliquis upon discharge. Qualifiers: Atrial fibrillation type: paroxysmal Qualified Code(s): I48.0 - Paroxysmal atrial fibrillation (11) CAD (coronary artery disease): Assessment and Plan: Stable. no evidence of active cardiac ischemia. Monitor. Qualifiers: Coronary Disease-Associated Artery/Lesion type: [place] artery [place] vs. transplanted heart: [place] heart Associated angina: without angina Qualified Code(s): I25.10 - Atherosclerotic heart disease of [place] coronary artery without angina pectoris (12) H/O right nephrectomy: Assessment and Plan: for suspect renal lesion. Turned out to be a benign lesion Internal Medicine - PN: Subj Subjective Interval history: Seen and examined. No overnight events. Pain is reasonably controlled. Patient reports inability to urinate and that he feels that he is holding urine in bladder. Tolerating PO diet. Exam Constitutional Vital Signs, click to edit/add: Last Vital Signs Temp 98.6 F 06/15/24 13:25 Pulse 103 H 06/15/24 13:25 Resp 20 06/15/24 13:25 BP 118/62 06/15/24 13:25 Pulse Ox 91 L 06/15/24 13:25 O2 Del Method Room Air 06/15/24 13:25 O2 Flow Rate 3 06/15/24 04:02 Documenting provider has reviewed patient's vital signs: yes Common normals: no apparent distress and oriented x3 General appearance: cooperative HENMT Common normals: normocephalic and head/scalp atraumatic Head and scalp: normocephalic and atraumatic Respiratory Common normals: normal respiratory effort and clear to auscultation bilaterally Effort & inspection: able to speak in complete sentences Auscultation: clear to auscultation bilaterally Cardio Common normals: regular rate, S1 normal heart sound and S2 normal heart sound Rate: regular rate Heart sounds: S1 normal and S2 normal GI Common normals: Normal to inspection, nondistended, normoactive bowel sounds present, soft to palpation and no hepatosplenomegaly Palpation: soft, tender (mild generalized tenderness) and no hepatosplenomegaly Extremity Common normals: no clubbing, cyanosis or edema Neuro Common normals: oriented x3, moves all extremities and no focal motor deficits Psych Common normals: mental status grossly normal, denies hallucinations, denies homicidal ideation and denies suicidal ideation Internal Medicine - PN: Obj Da Labs Labs: Laboratory Results - last 24 hr 06/15/24 06/15/24 04:20 10:28 WBC 8.0 RBC 3.66 L Hgb 11.4 L Hct 35.0 L MCV 95.6 H MCH 31.1 MCHC 32.6 RDW 13.9 Plt Count 94 L MPV 10.3 Neut % (Auto) 95.6 H Lymph % (Auto) 1.9 L [place] % (Auto) 2.2 Eos % (Auto) 0.1 L Baso % (Auto) 0.1 L Neut # (Auto) 7.7 H Lymph # (Auto) 0.2 L [place] # (Auto) 0.2 L Eos # (Auto) 0.0 Baso # (Auto) 0.0 Abs Immat Gran (auto) 0.01 Imm/Tot Granulo (auto) 0.1 PT 13.7 H INR 1.33 APTT 35.8 Sodium 133 L Potassium 6.4 H* Chloride 106 Carbon Dioxide 19.6 L Anion Gap 13.8 BUN 47.0 H Creatinine 2.84 H Est GFR ( Amer) 26 L Est GFR (Non-Af Amer) 22 L BUN/Creatinine Ratio 16.5 Glucose 94 Calcium 8.1 L Phosphorus 4.5 Magnesium 1.4 L Total Bilirubin 4.7 H AST 459 H ALT 780 H* Alkaline Phosphatase 188 H Total Protein 5.1 L Albumin 2.7 L Globulin 2.4 Albumin/Globulin Ratio 1.1 POC Glucose 173 H Urinary Catheter Management Urinary Catheter Management Straight: Cath placed during this visit: yes Urethral indwelling: Yes Reason for continuing: urinary obstruction Insertion date: 06/15/24 Insertion time: 09:26
[2024-06-15 14:00] LABS: Anion Gap 16.1; Calcium 8.2 mg/dL (8.5-10.1); Carbon Dioxide 18.8 mmol/L (21.0-32.0); Chloride 104 mmol/L (98-107); Estimated GFR (African America 26 (>=60); Estimated GFR (Non-African Ame 21 (>=60); Glucose 127 mg/dL (74-106); Potassium 5.9 mmol/L (3.5-5.1); Sodium 133 mmol/L (136-145)
[2024-06-15] MEDS: LACTATED RINGER'S SOLUTION 1,000 ML 125 ML IV (14:33)
[2024-06-15] MEDS: SODIUM BICARBONATE 325 MG TABLET 650 MG PO ×2 (14:34→21:18)
[2024-06-15] MEDS: SIMETHICONE 80 MG TAB.CHEW PO (21:21)
[2024-06-16] VITALS (15 sets, daily range): BP systolic 131–160; BP diastolic 74–78; PULSE 80–105; TEMP 36.6–36.9; O2SAT 91–95
--- NOTE | 2024-06-16 01:36 | PC.NURSE ---
Patient admits to intermittent gas pain that radiates up into his shoulders, Abdomen is firm and tender. Hypoactive bowel sounds continue. Patient passing flatus. Patient denies pain meds at this time. Patient educated on importance of staying ahead on pain management, continues to deny. Call light in reach at this time, patient denies further needs.
[2024-06-16] MEDS: OXYCODONE HCL/ACETAMINOPHEN 5MG/325MG 1 TAB PO (03:05)
[2024-06-16] MEDS: DOCUSATE SODIUM 100 MG CAPSULE PO (03:05)
[2024-06-16] MEDS: PIPERACILLIN SODIUM/TAZOBACTAM 3.375 GM in 0.9 % SODIUM CHLORIDE 50 ML IV ×2 (03:06→13:34)
[2024-06-16] MEDS: LACTATED RINGER'S SOLUTION 1,000 ML 125 ML IV (05:50)
[2024-06-16] MEDS: SODIUM BICARBONATE 325 MG TABLET 650 MG PO ×2 (05:51→13:31)
[2024-06-16 06:18] LABS: Basophils Percent Auto 0.1 % (0.2-2.0); Eosinophils Percent Auto 0.4 % (0.9-7.0); Hematocrit 32.6 % (42.0-54.0); Immature Granulocytes Abs Auto 0.03 10^3/uL (0.00-0.03); Immature Granulocytes Pct Auto 0.4 % (0.0-0.5); Lymphocytes Absolute Auto 0.2 10^3/uL (1.2-3.8); Lymphocytes Percent Auto 3.3 % (20.5-60.0); Mean Corpuscular HGB Conc 33.7 g/dL (29.9-35.2); Mean Corpuscular Hemoglobin 31.3 pg (25.9-34.0); Mean Corpuscular Volume 92.9 fL (80.0-94.0); Mean Platelet Volume 10.8 fL (9.5-13.5); Monocytes Absolute Auto 0.2 10^3/uL (0.3-0.8); Monocytes Percent Auto 2.4 % (1.7-12.0); Neutrophils Absolute Auto 6.6 10^3/uL (1.4-6.5); Neutrophils Percent Auto 93.4 % (43.0-75.0); Platelet Count 78 10^3/uL (150-450); Red Blood Count 3.51 10^6/uL (4.70-6.10); Red Cell Distribution Width 13.9 % (11.0-15.0)
[2024-06-16 06:35] LABS: Alanine Aminotransferase 473 U/L (16-63); Albumin Globulin Ratio 0.9; Albumin Level 2.3 g/dL (3.4-5.0); Alkaline Phosphatase 178 U/L (46-116); Anion Gap 16.7; Aspartate Amino Transferase 163 U/L (15-37); BUN Creatinine Ratio 16.3; Bilirubin Total 3.1 mg/dL (0.2-1.0); Calcium 8.6 mg/dL (8.5-10.1); Carbon Dioxide 20.2 mmol/L (21.0-32.0); Chloride 105 mmol/L (98-107); Estimated GFR (African America 29 (>=60); Estimated GFR (Non-African Ame 24 (>=60); Globulin 2.5 g/dL; Glucose 118 mg/dL (74-106); Potassium 4.9 mmol/L (3.5-5.1); Sodium 137 mmol/L (136-145); Total Protein 4.8 g/dL (6.4-8.2)
--- NOTE | 2024-06-16 07:25 | PM.GSPN ---
Progress Note: A&P Assessment and Plan (1) Acute cholecystitis: (2) Gallstones: (3) Chronic renal disease: (4) CKD (chronic kidney disease) stage 4, GFR 15-29 ml/min: (5) HLD (hyperlipidemia): Qualifiers: Hyperlipidemia type: mixed hyperlipidemia Qualified Code(s): E78.2 - Mixed hyperlipidemia (6) Type 2 diabetes mellitus: Qualifiers: Chronic kidney disease stage: stage 4 (severe) Diabetes mellitus complication detail: with chronic kidney disease Diabetes mellitus complication status: with kidney complications Diabetes mellitus chcf insulin use: without ferry terminal agent use Qualified Code(s): E11.22 - Type 2 diabetes mellitus with diabetic chronic kidney disease; N18.4 - Chronic kidney disease, stage 4 (severe) (7) HTN (hypertension): Qualifiers: Hypertension type: primary hypertension Qualified Code(s): I10 - Essential (primary) hypertension (8) Cardiac pacemaker in situ: (9) Afib: Qualifiers: Atrial fibrillation type: paroxysmal Qualified Code(s): I48.0 - Paroxysmal atrial fibrillation (10) CAD (coronary artery disease): Qualifiers: Associated angina: without angina Coronary Disease-Associated Artery/Lesion type: [place] artery [place] vs. transplanted heart: [place] heart Qualified Code(s): I25.10 - Atherosclerotic heart disease of [place] coronary artery without angina pectoris (11) H/O right nephrectomy: Plan S/P Robotic laparoscopic cholecystectomy, postop day 2 Hyperbilirubinemia and transaminitis Spoke with Dr. Galeana, Internal Medicine and discussed transfer of patient for ERCP of suspected common bile duct stone and GI consult, preferably at [place] Subjective Subjective Patient reports: feels better, tolerating liquids well, flatus and no bowel movement Interval history: 78-year-old male who is status post robotic laparoscopic cholecystectomy postop day 2. Patient reports feeling better today. States improved sleep last night. Notes that he continues to have bouts but is also passing gas now as well. States he has not had a bowel movement yet. Denies fevers, chills, nausea, vomiting, chest pain, dyspnea. Exam Constitutional Vital Signs, click to edit/add: Last Vital Signs Temp 98.4 F 06/16/24 02:59 Pulse 105 H 06/16/24 05:41 Resp 18 06/16/24 02:59 BP 131/74 06/16/24 02:59 Pulse Ox 95 06/16/24 04:23 O2 Del Method Nasal Cannula 06/16/24 04:23 O2 Flow Rate 2 06/16/24 04:23 Documenting provider has reviewed patient's vital signs: yes Common normals: no apparent distress General appearance: cooperative and comfortable HENMT Common normals: normocephalic, head/scalp atraumatic, hearing grossly normal bilaterally and external ears normal Chest Common normals: inspection of chest normal Chest: symmetrical chest wall rise Respiratory Common normals: normal respiratory effort and clear to auscultation bilaterally Effort & inspection: symmetric chest movement Cardio Common normals: regular rate and peripheral pulses 2+ throughout GI Inspection: normal to inspection Auscultation: normoactive bowel sounds Palpation: soft, tender (mild, diffusely ) and no hepatosplenomegaly; no guarding and not rigid Percussion: tympanic to percussion Extremity Common normals: normal to inspection and no clubbing, cyanosis or edema Neuro Common normals: moves all extremities Sensorium/orientation: awake and alert Psych Common normals: cooperative and affect normal Urinary Catheter Management Urinary Catheter Management Straight: Cath placed during this visit: yes Urethral indwelling: No Insertion date: 06/15/24 Insertion time: 09:26 Date and Time Date and Time of Service Date of service: 06/16/24 Time: 06:10
--- NOTE | 2024-06-16 09:49 | CM.NOTE ---
Rounds made with Dr. Messina, discussed with pt about transfer to higher level of care for ERCP. Pt verbalizes understanding and in agreement. Pt also voices [facility] is [facility]. Discussed this with Dr. Messina.
--- NOTE | 2024-06-16 10:32 | REH.PTDLY ---
Physical Therapy Daily Note PT Daily Note/Assess Start: 06/16/24 10:25 Freq: Status: Active Protocol: Document 06/16/24 10:25 ARMANDO (Rec: 06/16/24 10:32 ARMANDO [id number]) Physical Therapy Daily Note/Assessment Time In 10:10 Time Out 10:20 Subjective Pt in bathroom initially upon arrival. Pt is exhausted, reports wanting to walk but also just does not feel well at this time. Returned after pt rested and pt is now wanting to participate in therapy Therapeutic Activity Minutes (minutes) 10 Therapeutic Activity Units 1 Therapeutic Activity Comments Sit to stand transfers SBA. Gait training with IV pole 200 feet total, CGA with pt needing to stop a total of 3 times as he has stomach discomfort and R shoulder pain . Pt has mild shortness of breath at end of rx. Care transferred over to OT that is waiting in room to assist pt in selfcare. Total Therapy Minutes 10 Total Physical Therapy Units 1 Daily Note Summary Progressed gait distance today , but pt needs several rest breaks due to discomfort. Pt reports mentioned being transferred to [place] possibly . Continue with PT tomorrow if pt is still here to work on Ind gait.
--- NOTE | 2024-06-16 10:56 | CM.NOTE ---
Called Notification Center for [place] Notification ID [id number]
--- NOTE | 2024-06-16 11:10 | CM.NOTE ---
Called [facility] transfer line for pt's transfer. Medical records faxed to [phone] and awaiting call back for bed status.
--- NOTE | 2024-06-16 13:15 | SWNOTE1 ---
Plans is for pt to be transferred. SW updated [facility].
[2024-06-16] MEDS: AMLODIPINE BESYLATE 5 MG TABLET 10 MG PO (13:31)
[2024-06-16] MEDS: METOPROLOL SUCCINATE 25 MG TAB.ER.24H PO (13:31)
[2024-06-16] MEDS: LISINOPRIL 10 MG TABLET PO (13:31)
[2024-06-16] MEDS: SIMETHICONE 80 MG TAB.CHEW PO (13:31)
--- NOTE | 2024-06-16 13:32 | P.IMPN_ITS ---
Progress Note: A&P Assessment and Plan (1) Acute cholecystitis: Assessment and Plan: s/p lap [place]. [place] PO diet. Pain is reasonably controlled. (2) Abnormal liver function: Assessment and Plan: persistent transaminitis, elevated bilirubin. Unable to perform MRI due to pacemaker. HIDA scan - no evidence of bile leak General surgery, recommending transfer to tertiary care center with ERCP capabilities. Awaiting call back from [facility] for it. (3) LUCILA (acute kidney injury): Assessment and Plan: Improved, renal function more or less at baseline. Monitor. (4) Hyperkalemia: Assessment and Plan: resolved. Monitor. (5) CKD (chronic kidney disease) stage 4, GFR 15-29 ml/min: Assessment and Plan: CKD 4 with baseline cr of around 2. (6) HLD (hyperlipidemia): Assessment and Plan: Hold statins Qualifiers: Hyperlipidemia type: mixed hyperlipidemia Qualified Code(s): E78.2 - Mixed hyperlipidemia (7) Type 2 diabetes mellitus: Assessment and Plan: SSI while in patient. Qualifiers: Diabetes mellitus nursing home insulin use: without intermediate teacher use Diabetes mellitus complication status: with kidney complications Diabetes mellitus complication detail: with chronic kidney disease Chronic kidney disease stage: stage 4 (severe) Qualified Code(s): E11.22 - Type 2 diabetes mellitus with diabetic chronic kidney disease; N18.4 - Chronic kidney disease, stage 4 (severe) (8) HTN (hypertension): Assessment and Plan: Stable blood pressure. Monitor. Resume home meds Qualifiers: Hypertension type: primary hypertension Qualified Code(s): I10 - Essential (primary) hypertension (9) Cardiac pacemaker in situ: Assessment and Plan: For Afib. (10) Afib: Assessment and Plan: Will resume eliquis upon discharge. Qualifiers: Atrial fibrillation type: paroxysmal Qualified Code(s): I48.0 - Paroxysmal atrial fibrillation (11) CAD (coronary artery disease): Assessment and Plan: Stable. no evidence of active cardiac ischemia. Monitor. Qualifiers: Coronary Disease-Associated Artery/Lesion type: [place] artery [place] vs. transplanted heart: [place] heart Associated angina: without angina Qualified Code(s): I25.10 - Atherosclerotic heart disease of [place] coronary artery without angina pectoris (12) H/O right nephrectomy: Assessment and Plan: for suspected renal lesion. Turned out to be a benign lesion Internal Medicine - PN: Subj Subjective Interval history: Seen and examined. No overnight events. Pain is well controlled. Tolerating PO diet. Exam Constitutional Vital Signs, click to edit/add: Last Vital Signs Temp 98.2 F 06/16/24 11:56 Pulse 90 06/16/24 11:56 Resp 18 06/16/24 11:56 BP 144/75 H 06/16/24 11:56 Pulse Ox 91 L 06/16/24 11:56 O2 Del Method Nasal Cannula 06/16/24 11:56 O2 Flow Rate 2 06/16/24 11:56 Documenting provider has reviewed patient's vital signs: yes Common normals: no apparent distress and oriented x3 General appearance: cooperative Respiratory Common normals: normal respiratory effort and clear to auscultation bilaterally Effort & inspection: able to speak in complete sentences Auscultation: clear to auscultation bilaterally Cardio Common normals: regular rate, S1 normal heart sound and S2 normal heart sound Rate: regular rate Heart sounds: S1 normal and S2 normal GI Common normals: soft to palpation and no hepatosplenomegaly Palpation: soft and no hepatosplenomegaly Extremity Common normals: no clubbing, cyanosis or edema Neuro Common normals: oriented x3, moves all extremities and no focal motor deficits Psych Common normals: mental status grossly normal, denies hallucinations, denies homicidal ideation and denies suicidal ideation Internal Medicine - PN: Obj Da Labs Labs: Laboratory Results - last 24 hr 06/15/24 06/16/24 13:27 05:24 WBC 7.0 RBC 3.51 L Hgb 11.0 L Hct 32.6 L MCV 92.9 MCH 31.3 MCHC 33.7 RDW 13.9 Plt Count 78 L MPV 10.8 Neut % (Auto) 93.4 H Lymph % (Auto) 3.3 L [place] % (Auto) 2.4 Eos % (Auto) 0.4 L Baso % (Auto) 0.1 L Neut # (Auto) 6.6 H Lymph # (Auto) 0.2 L [place] # (Auto) 0.2 L Eos # (Auto) 0.0 Baso # (Auto) 0.0 Abs Immat Gran (auto) 0.03 Imm/Tot Granulo (auto) 0.4 Sodium 133 L 137 Potassium 5.9 H 4.9 Chloride 104 105 Carbon Dioxide 18.8 L 20.2 L Anion Gap 16.1 16.7 BUN 49.0 H 43.0 H Creatinine 2.88 H 2.63 H Est GFR ( Amer) 26 L 29 L Est GFR (Non-Af Amer) 21 L 24 L BUN/Creatinine Ratio 17.0 16.3 Glucose 127 H 118 H Calcium 8.2 L 8.6 Total Bilirubin 3.1 H AST 163 H ALT 473 H Alkaline Phosphatase 178 H Total Protein 4.8 L Albumin 2.3 L Globulin 2.5 Albumin/Globulin Ratio 0.9 Urinary Catheter Management Urinary Catheter Management Straight: Cath placed during this visit: yes Urethral indwelling: No Insertion date: 06/15/24 Insertion time: 09:26
[2024-06-16] MEDS: FUROSEMIDE 40 MG TABLET PO (13:49)
[2024-06-16] MEDS: CALCIUM CARBONATE 500 MG (200MG ELEMENTAL) TAB CHEW PO (13:49)
[2024-06-16] MEDS: FUROSEMIDE 40 MG/4 ML VIAL IVP (16:55)
[2024-06-16] MEDS: OMEPRAZOLE 20 MG CAPSULE.DR PO (16:56)
== END 2024-06-16 18:40 | disposition short-term general hospital (02) | DRG 418 ==
LOC: ER 06-14 05:00 → MS 06-14 05:48
PROVIDERS: Registered Nurse; Surgery; Admitting Provider Internal Medicine; Emergency Provider Emergency Medicine; PCP Nurse Practitioner Family; Visit Provider Internal Medicine
PROC: 0FT44ZZ Resection of Gallbladder, Percutaneous Endoscopic Approach (ICD-10-PCS; principal; 2024-06-14 11:30)
DX: K80.00 Calculus of gallbladder with acute cholecystitis without obstruction (principal); I13.0 Hypertensive heart and chronic kidney disease with heart failure and stage 1 through stage 4 chronic kidney disease, or unspecified chronic kidney disease; I50.32 Chronic diastolic (congestive) heart failure; N18.4 Chronic kidney disease, stage 4 (severe); R79.89 Other specified abnormal findings of blood chemistry; I25.10 Atherosclerotic heart disease of native coronary artery without angina pectoris; K66.0 Peritoneal adhesions (postprocedural) (postinfection); E78.2 Mixed hyperlipidemia; I48.0 Paroxysmal atrial fibrillation; K57.30 Diverticulosis of large intestine without perforation or abscess without bleeding; E11.22 Type 2 diabetes mellitus with diabetic chronic kidney disease; E87.5 Hyperkalemia; R74.01 Elevation of levels of liver transaminase levels; E80.6 Other disorders of bilirubin metabolism; Z79.01 Long term (current) use of anticoagulants; Z90.5 Acquired absence of kidney; Z95.0 Presence of cardiac pacemaker
CPT/HCPCS: 36415; 51702; 51798; 71045; 74176; 76705; 78226; 80048; 80053; 80076; 81001; 82150; 82948; 83690; 83735; 84100; 85025; 85610; 85730; 87086; 88304; 93005; 94761; 96365; 96366; 96375; 96376; 97161; 97165; 97530; 97535; 99285; A9537; J1170; J1817; J1940; J2270; J2371; J2405; J2543; J2704; J2710; J3010